=== PATIENT | female | born 1955 | race Caucasian/White ===

== ENCOUNTER 2020-01-17 18:14 | Emergency (ER) | payer OTHER ==
--- NOTE | 2020-01-17 18:24 | PDOC ---
History of Present Illness - General Chief Complaint: Eye Problem Stated Complaint: B/L EYE REDNESS Time Seen by Provider: 01/17/20 18:22 History Source: Patient Exam Limitations: No Limitations - History of Present Illness Initial Comments: 01/17/20 18:24 HPI 64 YOF with no significant medical history presenting with bilateral eye redness since this morning after she woke up from 1 hour nap. She noticed her eye was itchy and there was some crusty material/discharge. Denies trauma. She denies blindness, blurry vision, curtain coming down, eye pain, ear pain/tinnitis. Denies fever, chills, chest pain, SOB, palpitation, dizziness, headache, weakness, N, V, D, abdominal pain, bladder and bowel problems, focal weakness/paresthesias, leg swelling/pain, rash. pt admits to having been told she has high blood pressure previously, but not on medications. Allergies: None Past Medical History/PSH: as above Social history: Lives with family. No tobacco, ETOH or drug use. Meds: none Family history: noncontributory 01/17/20 18:25 01/17/20 18:26 Past History - Medical History Allergies/Adverse Reactions: Allergies Allergy/AdvReac Type Severity Reaction Status Date / Time No Known Allergies Allergy Verified 12/25/11 08:31 Home Medications: Ambulatory Orders Ofloxacin 0.3% Ophth Soln [Ocuflox -] 1 drop OP Q4H 5 Days #10 ml 01/17/20 Anemia: No Asthma: No Cancer: No Cardiac Disorders: No CVA: No COPD: No CHF: No Dementia: No Diabetes: No GI Disorders: No Disorders: No HTN: No Hypercholesterolemia: No Liver Disease: No Seizures: No Thyroid Disease: No - Surgical History Abdominal Surgery: No Appendectomy: No Cardiac Surgery: No Cholecystectomy: No Lung Surgery: No Neurologic Surgery: No Orthopedic Surgery: Yes (RIGHT ANKLE SURGERY) - Psycho-Social/Smoking History Smoking History: Never smoked Have you smoked in the past 12 months: No Review of Systems - Review of Systems Able to Perform ROS?: Yes Comments:: 01/17/20 18:29 Review of systems Constitutional: no fevers or chills. No weakness HEENT: no headache or dizziness. No congestion. No visual/hearing disturbances. no blindness, no eye pain or swelling. +discharge, +red eye. CVS: no cp or syncope. Resp: no sob. No cough. Gastrointestinal: no abdominal pain, nausea, vomiting, diarrhea. MUSCULOSKELETAL: No joint pain and swelling. No neck or back pain. SKIN: no redness or skin changes, no discharge, no rash. No wounds. Hematologic: no easy bruising/bleeding. NEUROLOGIC: No headache, dizziness, LOC or altered mental status. No weakness, numbness or tingling. Allergic/Immunologic: no allergies All other systems reviewed and negative, or as documented in HPI. *Physical Exam - Physical Exam 01/17/20 18:30 Physical exam General: Well appearing, awake and alert, NAD. HEENT: NCAT, no nystagmus. visual acuity bilaterally with corrective lenses 20/40 bilaterally. +bilateral lateral subconjuctival hemorrhage with sparing of the limbus. no teardrop pupil. globe intact. PERRL, EOMI, clear conjunctiva, anicteric, moist mucus membranes, clear oropharynx, no oral lesions.. no sinus tenderness to percussion. Neck: neck supple, FROM Resp: normal and even respirations, no respiratory distress CVS: 2+ peripheral pulses throughout, no peripheral edema MSK: no edema, ARRIOLA x4 Extremities: no calf tenderness Neuro: alert, oriented appropriately; CN II-XII grossly intact. speech clear, gait stable. Psych: Calm and cooperative Skin: warm and well perfused, cap refill <2 sec, normal color, no rash or skin discoloration. 01/17/20 18:32 01/17/20 18:33 Medical Decision Making - Medical Decision Making 01/17/20 18:31 Vital Signs Temp Pulse Resp BP Pulse Ox 99 F 77 20 104/101 H 99 01/17/20 18:16 01/17/20 18:16 01/17/20 18:16 01/17/20 18:16 01/17/20 18:16 Vital signs reviewed unremarkable, mildly elevated diastolic pressure but patient denies any symptoms. Neurologically intact, no cranial nerve deficits which her within normal limits from cranial nerves II through XII. Gait is stable. No chest pain or shortness of breath, vomiting, focal weakness numbness tingling or weakness. Patient denies any visual deficits. She is 20/40 bilaterally with corrective lenses. there is what appears to be subconjunctival hemorrhage, laterally with sparing of the limbus pt has history of HTN, not on meds - can be contributing factor with elevated diastolic pressure, but not symptomatic otherwise no trauma. no indication for fluorescein staining no pain doubt acute angle glaucoma or vascular pathology such as central vein/artery occlusion as pt denies any pain or visual changes/blindness no headache, doubt central pathology or cva will also treat as conjunctivitis, where she had some discharge/crusting of eyes pt prefers drops, ofloxacin gtt mandeep eyes x 5 day course DC with primary and ophtho followup, pt has seen Dr Castano previously return precautions provided pt made aware of impression and plan, agreeable. 01/17/20 18:34 Discharge - Discharge Information Problems reviewed: Yes Clinical Impression/Diagnosis: Subconjunctival hemorrhage of both eyes Conjunctivitis Qualifiers: Conjunctivitis type: acute Acute conjunctivitis type: unspecified Laterality: bilateral Qualified Code(s): H10.33 - Unspecified acute conjunctivitis, bilateral Condition: Good Disposition: HOME - Admission No - Additional Discharge Information Prescriptions: Ofloxacin 0.3% Ophth Soln [Ocuflox -] 1 drop OP Q4H 5 Days #10 ml - Follow up/Referral Referrals: Lola Castano MD [Staff Physician] - [facility] [place] [facility] [place] [Provider Group] [facility] [Provider Group] - Patient Discharge Instructions Patient Printed Discharge Instructions: DI for Conjunctivitis, DI for Subconjunctival Hemorrhage Additional Instructions: follow up with your primary doctor regarding your blood pressure control you have a condition called subconjunctival hemorrhage and conjunctivitis you are prescribed topical antibiotic drops for the infection the hemorrhage should resolve in 5-7 [address] follow up with Dr Castano your eye doctor if worsening symptoms such as headache, dizziness, lethargy, coma, passing out, weakness, numbness, tingling, visual or hearing changes, blindness, eye pain, worsening discharge, vomiting, return sooner for evaluation. - Post Discharge Activity
[2020-01-17 18:25] VITALS: BP 104/101; PULSE 77; TEMP 99; BMI 30.1
== END 2020-01-17 18:41 | disposition home or self-care (01) ==
LOC: FER 18:14 → SUPCPDRO 18:14 → FER 18:41
DX: H10.33 Unspecified acute conjunctivitis, bilateral (principal); H11.33 Conjunctival hemorrhage, bilateral
CPT/HCPCS: 99283-25

== ENCOUNTER 2020-06-28 19:05 | Inpatient (IN) | payer OTHER ==
[2020-06-28] MEDS ORDERED: SODIUM CHLORIDE 1,000 ML IV STA (20:03)
[2020-06-28] MEDS ORDERED: ONDANSETRON 4 MG/2 ML VIAL IVPUSH ONE ×2 (20:03→22:10)
[2020-06-28] MEDS ORDERED: PANTOPRAZOLE SODIUM 40 MG VIAL IVPB ONE (20:03)
[2020-06-28] MEDS ORDERED: ONDANSETRON 4 MG/2 ML VIAL ONE ×2 (20:21→22:16)
[2020-06-28] MEDS ORDERED: PANTOPRAZOLE SODIUM 40 MG VIAL ONE (20:21)
[2020-06-28 20:33] LABS: BASO % 0.5 % (0-2.0); EOS % 0.1 % (0-4.5); HEMATOCRIT 45.7 % (32.4-45.2); HEMOGLOBIN 15.6 GM/dl (10.7-15.3); LYMPH % 8.5 % (8-40); MCH 31.9 pg (25.7-33.7); MCHC 34.2 g/dl (32.0-36.0); MEAN CELL VOLUME 93.1 fl (80-96); MEAN PLT VOLUME 7.4 fl (7.5-11.1); MONO % 4.3 % (3.8-10.2); NEUT % 86.6 % (42.8-82.8); PLATELET COUNT 365 K/MM3 (134-434); RBC 4.91 M/mm3 (3.60-5.2); RDW 12.5 % (11.6-15.6); WHITE BLOOD COUNT 14.7 K/mm3 (4.0-10.8)
[2020-06-28 20:45] LABS: ALBUMIN 4.8 g/dl (3.4-5.0); BILIRUBIN,TOTAL 1.1 mg/dl (0.2-1); CALCIUM 9.9 mg/dl (8.5-10); CREATININE 0.9 mg/dl (0.55-1.3); TOT PROT 7.9 g/dl (6.4-8.2)
[2020-06-28 20:47] LABS: POTASSIUM 2.9 mmol/L (3.5-5.1)
[2020-06-28 21:01] LABS: EPITHELIAL CELLS FEW /hpf
[2020-06-28] MEDS ORDERED: POTASSIUM CHLORIDE 20 MEQ PREMIX IVPB 100 ML IVPB ONE (22:17)
[2020-06-28] MEDS ORDERED: ACETAMINOPHEN 1000 MG/100 ML VIAL (NON FORMULARY) IVPB ONE (22:20)
[2020-06-28] MEDS ORDERED: KCL 10 MEQ IVPB 20 MEQ/200 ML INFUS.BAG IVPB ONE (22:20)
[2020-06-28] MEDS ORDERED: ACETAMINOPHEN INJECTION 100 ML IVPB ONE (22:20)
[2020-06-28] MEDS ORDERED: PIPERACILLIN/TAZOB 3.375 GM 3.375 GM in DEXTROSE 5%-WATER - 50 ML IVPB ONE (23:03)
[2020-06-28] MEDS ORDERED: PIPERACILLIN/TAZOBACTAM 3.375 GM VIAL IVPB ONE (23:16)
[2020-06-29] MEDS ORDERED: SODIUM CHLORIDE 1,000 ML IV SCH (01:15)
[2020-06-29] MEDS ORDERED: ONDANSETRON 4 MG/2 ML VIAL IVPUSH PRN ×2 (02:00→15:15)
[2020-06-29 02:10] LABS: POTASSIUM 3.6 mmol/L (3.5-5.1)
[2020-06-29] MEDS ORDERED: LORazepam 2 MG/ML SDV VIAL ONE (02:57)
[2020-06-29 03:02] LABS: MAGNESIUM 1.7 mg/dL (1.8-2.4)
[2020-06-29] MEDS ORDERED: MAGNESIUM SULF 50% (8.12 MEQ/2 ML-1 GM VIAL) IVPB ONE (03:11)
[2020-06-29] MEDS ORDERED: MAGNESIUM 1GM/D5W - 2 GM/200 ML IVPB IVPB ONE (03:24)
[2020-06-29 06:27] VITALS: BMI 28.0
[2020-06-29 08:58] LABS: BASO % 0.3 % (0-2.0); EOS % 0.3 % (0-4.5); HEMATOCRIT 41.4 % (32.4-45.2); HEMOGLOBIN 14.1 GM/dL (10.7-15.3); LYMPH % 11.1 % (8-40); MCH 31.7 pg (25.7-33.7); MCHC 34.1 g/dl (32.0-36.0); MEAN PLT VOLUME 7.8 fl (7.5-11.1); MONO % 8.2 % (3.8-10.2); NEUT % 80.1 % (42.8-82.8); PLATELET COUNT 276 K/MM3 (134-434); RBC 4.45 M/mm3 (3.60-5.2); RDW 13.3 % (11.6-15.6); WHITE BLOOD COUNT 8.4 K/mm3 (4.0-10.0)
[2020-06-29 09:33] LABS: POTASSIUM 3.3 mmol/L (3.5-5.1)
[2020-06-29] MEDS ORDERED: ACETAMINOPHEN 1000 MG/100 ML VIAL (NON FORMULARY) IVPB PRN (09:37)
[2020-06-29 09:43] LABS: BILIRUBIN,TOTAL 0.6 mg/dL (0.2-1); TOT PROT 6.6 g/dl (6.4-8.2)
[2020-06-29 09:59] LABS: ALBUMIN 3.7 g/dl (3.4-5.0); BLOOD UREA NITROGEN 9.3 mg/dL (7-18); MAGNESIUM 2.6 mg/dL (1.8-2.4)
[2020-06-29] MEDS ORDERED: PIPERACILLIN/TAZOB 3.375 GM 3.375 GM in DEXTROSE 5%-WATER - 50 ML IVPB SCH (10:00)
[2020-06-29 10:01] LABS: CREATININE 0.9 mg/dL (0.55-1.3)
[2020-06-29] MEDS: KCL 10 MEQ IVPB 10 MEQ/100 ML INFUS.BAG IVPB SCH ×3 (11:00→16:38)
[2020-06-29] MEDS ORDERED: LIDOCAINE HCL 1%, 10 MG/ML (20ML VIAL) ONE (11:23)
[2020-06-29] MEDS ORDERED: SUCCINYLCHOLINE CHLORIDE 200 MG/10 ML SYRINGE ONE (11:51)
[2020-06-29] MEDS ORDERED: ROCURONIUM BROMIDE 50 MG/5 ML SYRINGE ONE (11:51)
[2020-06-29] MEDS ORDERED: PROPOFOL 20 ML ONE ×2 (11:51)
[2020-06-29 12:38] LABS: INR 1.03 (0.83-1.09); PROTHROMBIN TIME (PATIENT) 12.6 SEC (9.7-13.0)
[2020-06-29] MEDS ORDERED: MIDAZOLAM HCL 2 MG/2 ML SINGLE DOSE VIAL ONE (12:57)
[2020-06-29] MEDS ORDERED: LIDOCAINE HCL 1%, 10 MG/ML (20ML VIAL) NR ONE ×2 (13:16)
[2020-06-29] MEDS ORDERED: BUPIVACAINE HCL/PF 0.5% (5MG/ML) 10 ML VIAL NR ONE ×2 (13:17)
[2020-06-29] MEDS ORDERED: HYDROmorphone HCl 2 MG/ML VIAL IVPUSH PRN (13:39)
[2020-06-29] MEDS ORDERED: LACTATED RINGERS SOLUTION 1,000 ML IV SCH (13:45)
[2020-06-29] MEDS ORDERED: NEOSTIGMINE METHYLSULFATE 0.5 MG/ML - 10 ML MDV ONE (14:18)
[2020-06-29] MEDS ORDERED: morphine SULFATE 4 MG/ML VIAL IVPB PRN (15:01)
[2020-06-29] MEDS: SODIUM CHLORIDE 1,000 ML IV SCH (16:00)
[2020-06-29] MEDS: ACETAMINOPHEN 1000 MG/100 ML VIAL (NON FORMULARY) IVPB SCH (17:33)
[2020-06-29] MEDS: KETOROLAC TROMETHAMINE 15 MG/ML VIAL IVPUSH PRN (20:35)
[2020-06-30] MEDS: ACETAMINOPHEN 1000 MG/100 ML VIAL (NON FORMULARY) IVPB SCH (00:40)
[2020-06-30] MEDS: KETOROLAC TROMETHAMINE 15 MG/ML VIAL IVPUSH PRN (05:36)
[2020-06-30 08:30] LABS: POTASSIUM 4.2 mmol/L (3.5-5.1)
[2020-06-30 08:33] LABS: BLOOD UREA NITROGEN 8.7 mg/dL (7-18); CALCIUM 8.4 mg/dL (8.5-10.1)
[2020-06-30] MEDS ORDERED: MORPHINE SULFATE 2 MG/ML VIAL IVPB PRN (08:34)
[2020-06-30 08:36] LABS: CREATININE 0.7 mg/dL (0.55-1.3)
[2020-06-30 08:37] LABS: PHOSPHOROUS 2.7 mg/dL (2.5-4.9)
[2020-06-30] MEDS ORDERED: METOPROLOL TARTRATE 25 MG TABLET (FP) PO SCH (10:36)
[2020-06-30] MEDS: ACETAMINOPHEN 1000 MG/100 ML VIAL (NON FORMULARY) IVPB PRN ×2 (12:17→20:00)
[2020-06-30] MEDS: SODIUM CHLORIDE 1,000 ML IV SCH (16:39)
[2020-06-30] MEDS: morphine SULFATE 4 MG/ML VIAL IVPUSH PRN ×2 (16:46→22:54)
[2020-07-01] MEDS: ACETAMINOPHEN 1000 MG/100 ML VIAL (NON FORMULARY) IVPB PRN ×3 (03:06→20:19)
[2020-07-01] MEDS ORDERED: KETOROLAC TROMETHAMINE 30 MG/1 ML VIAL IVPUSH ONE (07:58)
[2020-07-01] MEDS ORDERED: PHENOL 177 ML SPRAY BOTTLE MM PRN (10:17)
[2020-07-01] MEDS: morphine SULFATE 4 MG/ML VIAL IVPUSH PRN ×2 (12:56→23:00)
[2020-07-01] MEDS: SODIUM CHLORIDE 1,000 ML IV SCH ×2 (17:31→20:18)
[2020-07-02] MEDS: ACETAMINOPHEN 1000 MG/100 ML VIAL (NON FORMULARY) IVPB PRN ×2 (02:04→13:37)
[2020-07-02] MEDS: morphine SULFATE 4 MG/ML VIAL IVPUSH PRN (08:30)
[2020-07-02] MEDS ORDERED: oxyCODONE HCL 5 MG TABLET PO PRN (08:45)
[2020-07-02] MEDS: metoPROLOL SUCCINATE 25 MG TAB.SR.24H (FP) PO SCH (10:10)
[2020-07-02] MEDS ORDERED: POLYETHYLENE GLYCOL 3350 119 GM BTL PO SCH (11:45)
[2020-07-02] MEDS ORDERED: DOCUSATE SODIUM 100 MG CAPSULE (FP) PO SCH (14:00)
[2020-07-02 15:13] LABS: BASO % 0.6 % (0-2.0); EOS % 7.8 % (0-4.5); HEMATOCRIT 37.7 % (32.4-45.2); HEMOGLOBIN 12.7 GM/dL (10.7-15.3); MCH 30.8 pg (25.7-33.7); MCHC 33.6 g/dl (32.0-36.0); MEAN CELL VOLUME 91.4 fl (80-96); MEAN PLT VOLUME 7.2 fl (7.5-11.1); MONO % 7.2 % (3.8-10.2); NEUT % 65.4 % (42.8-82.8); PLATELET COUNT 278 K/MM3 (134-434); RBC 4.12 M/mm3 (3.60-5.2); RDW 12.6 % (11.6-15.6); WHITE BLOOD COUNT 7.2 K/mm3 (4.0-10.0)
[2020-07-02] MEDS ORDERED: LOSARTAN POTASSIUM 25 MG TABLET PO ONE (16:01)
[2020-07-02] MEDS: LOSARTAN POTASSIUM 50 MG TABLET PO SCH (16:50)
[2020-07-02] MEDS: oxyCODONE HCL 5 MG TABLET PO PRN ×2 (16:53→20:29)
[2020-07-03] MEDS: ACETAMINOPHEN 325 MG TABLET (FP) PO PRN ×3 (01:25→16:49)
[2020-07-03] MEDS: metoPROLOL SUCCINATE 25 MG TAB.SR.24H (FP) PO SCH (09:28)
[2020-07-03] MEDS: LOSARTAN POTASSIUM 50 MG TABLET PO SCH (09:28)
[2020-07-03 11:58] LABS: BASO % 0.6 % (0-2.0); HEMATOCRIT 39.5 % (32.4-45.2); HEMOGLOBIN 13.4 GM/dL (10.7-15.3); LYMPH % 18.3 % (8-40); MCH 31.5 pg (25.7-33.7); MCHC 33.9 g/dl (32.0-36.0); MEAN CELL VOLUME 92.8 fl (80-96); MONO % 7.2 % (3.8-10.2); NEUT % 69.9 % (42.8-82.8); PLATELET COUNT 300 K/MM3 (134-434); RBC 4.25 M/mm3 (3.60-5.2); RDW 12.9 % (11.6-15.6); WHITE BLOOD COUNT 6.8 K/mm3 (4.0-10.0)
[2020-07-03 12:21] LABS: ALBUMIN 3.4 g/dl (3.4-5.0); BLOOD UREA NITROGEN 5.8 mg/dL (7-18); MAGNESIUM 1.9 mg/dL (1.8-2.4)
[2020-07-03 12:24] LABS: CREATININE 0.6 mg/dL (0.55-1.3)
[2020-07-03 12:26] LABS: BILIRUBIN,TOTAL 0.5 mg/dL (0.2-1); TOT PROT 6.7 g/dl (6.4-8.2)
[2020-07-03 12:52] LABS: POTASSIUM 2.9 mmol/L (3.5-5.1)
[2020-07-03] MEDS ORDERED: KCL 10 MEQ IVPB 10 MEQ/100 ML INFUS.BAG IVPB SCH (13:15)
[2020-07-03] MEDS ORDERED: POTASSIUM CHLORIDE TABS 20 MEQ TABLET.ER (FP) PO ONE (13:30)
[2020-07-03 15:32] VITALS: BP 146/85; PULSE 77; TEMP 97.7
== END 2020-07-03 19:08 | disposition home or self-care (01) | DRG 351 ==
LOC: FER 19:05 → J6WEST-2 06-29 03:20
PROVIDERS: ADMIT Internal Medicine; ATTEND Nurse Practitioner Family
PROC: 0DH67YZ Insertion of Other Device into Stomach, Via Natural or Artificial Opening (ICD-10-PCS; 2020-06-29)
PROC: 0YQ80ZZ Repair Left Femoral Region, Open Approach (ICD-10-PCS; principal; 2020-06-29 11:00)
DX: K41.30 Unilateral femoral hernia, with obstruction, without gangrene, not specified as recurrent (principal); K56.609 Unspecified intestinal obstruction, unspecified as to partial versus complete obstruction; I24.8 Other forms of acute ischemic heart disease; I10 Essential (primary) hypertension; E87.6 Hypokalemia; D72.829 Elevated white blood cell count, unspecified; R91.1 Solitary pulmonary nodule; K76.9 Liver disease, unspecified; R01.1 Cardiac murmur, unspecified; R10.13 Epigastric pain
CPT/HCPCS: 36415; 74177-TC; 80048; 80053; 80061; 81003; 81015; 82550; 83690; 83721; 83735; 84100; 84132; 84295; 84484; 85025; 85610; 87086; 88302-TC; 93005; 94760; 99285-25; C9803; J0131; Q9967; U0003

== ENCOUNTER 2022-02-02 07:50 | Emergency (ER) | payer OTHER ==
[2022-02-02 08:33] VITALS: BP 168/109; PULSE 103; TEMP 98; BMI 26.5
[2022-02-02] MEDS ORDERED: oxyCODONE HCL 5 MG TABLET PO ONE (08:34)
[2022-02-02] MEDS ORDERED: oxyCODONE HCL 5 MG TABLET ONE (08:34)
== END 2022-02-02 08:58 | disposition home or self-care (01) ==
LOC: FER 07:50
DX: M25.562 Pain in left knee (principal)
CPT/HCPCS: 93005; 99283-25

== ENCOUNTER 2022-02-04 10:42 | Emergency (ER) | payer OTHER ==
[2022-02-04 11:10] VITALS: BP 156/90; PULSE 97; TEMP 98.7; BMI 26.5
== END 2022-02-04 11:31 | disposition home or self-care (01) ==
LOC: FER 10:42
DX: F11.20 Opioid dependence, uncomplicated (principal); Z76.0 Encounter for issue of repeat prescription
CPT/HCPCS: 99282-25

== ENCOUNTER 2022-03-03 08:56 | Emergency (ER) | payer OTHER ==
[2022-03-03 09:12] VITALS: BP 161/100; PULSE 100; RESP 20; TEMP 98.2; BMI 24.7
== END 2022-03-03 09:24 | disposition home or self-care (01) ==
LOC: FER 08:56
DX: Z76.0 Encounter for issue of repeat prescription (principal)
CPT/HCPCS: 99281-25

== ENCOUNTER 2022-05-15 10:17 | Emergency (ER) | payer OTHER ==
[2022-05-15 10:33] VITALS: TEMP 97.6; BMI 24.0
[2022-05-15] MEDS ORDERED: LORazepam 2 MG TABLET PO ONE (10:35)
[2022-05-15] MEDS ORDERED: LORazepam 0.5 MG TABLET ONE (10:52)
[2022-05-15 11:01] LABS: HEMATOCRIT 38.4 % (32.4-45.2); HEMOGLOBIN 13.6 G/dL (10.7-15.3); MCHC 35.5 g/dl (32.0-36.0); MEAN CELL VOLUME 95.7 fl (80-96); MEAN PLT VOLUME 6.8 fl (7.5-11.1); PLATELET COUNT 330.9 10^3/uL (134-434); RBC 4.01 10^6/uL (3.60-5.2); RDW 13.5 % (11.6-15.6); WHITE BLOOD COUNT 5.1 10^3/uL (4.0-10.8)
[2022-05-15 11:10] LABS: PLATELET ESTIMATE ADEQUATE
[2022-05-15 11:16] LABS: BILIRUBIN,TOTAL 0.5 mg/dl (0.2-1); CALCIUM 9.2 mg/dl (8.5-10); CREATININE 0.9 mg/dl (0.55-1.3); MAGNESIUM 2.1 mg/dL (1.8-2.4)
[2022-05-15 11:32] LABS: EPITHELIAL CELLS MODERATE /hpf
[2022-05-15 12:03] VITALS: BP 133/82; PULSE 65; RESP 16
[2022-05-15] MEDS ORDERED: chlordiazePOXIDE HCL 25 MG CAPSULE PO ONE ×2 (12:39→12:43)
[2022-05-15] MEDS ORDERED: chlordiazePOXIDE HCL 25 MG CAPSULE ONE (13:10)
[2022-05-15 13:24] LABS: OPIATES, URI NEGATIVE (NEGATIVE)
[2022-05-15 13:25] LABS: COCAINE, UR NEGATIVE (NEGATIVE); METHADONE, UR NEGATIVE (NEGATIVE); PHENCYCLIDINE,URINE NEGATIVE (NEGATIVE); URINE BENZODIAZEPINES NEGATIVE (NEGATIVE)
[2022-05-15 13:31] LABS: URINE AMPHETAMINES NEGATIVE (NEGATIVE); URINE BARBITURATES NEGATIVE (NEGATIVE)
== END 2022-05-15 13:40 | disposition home or self-care (01) ==
LOC: FER 10:17
DX: F10.939 Alcohol use, unspecified with withdrawal, unspecified (principal)
CPT/HCPCS: 36415; 71046-TC-FY; 80053; 80307; 81003; 81015; 83735; 84443; 84484; 85025; 87086; 93005; 99284-25